=== PATIENT | male | born 1930 | race Caucasian/White ===

== ENCOUNTER 2018-01-13 19:39 | Inpatient (IN) ==
[2018-01-13 21:38] LABS: Basophils % 0.4 % (0.0-0.8); Eosinophils # 0.1 10*3/uL (0.0-0.87); Eosinophils % 1.6 % (0.00-10.9); Hematocrit 30.3 VOL% (42.0-52.0); Hemoglobin 9.5 GM/DL (14.0-18.0); Immature Granulocytes % 0.2 %; Immature Granulocytes Absolute 0.01 #; Lymphocytes # 0.7 10*3/uL (1.4-4.0); Lymphocytes % 11.6 % (21.2-54.2); Mean Corpuscular HGB Conc 31.4 GM/DL (32-36); Mean Corpuscular Hemoglobin 33 PG (27-34); Mean Corpuscular Volume 105.9 FL (87-102); Mean Platelet Volume 10.8 FL (9.6-12.0); Monocytes # 0.5 10*3/uL (0.11-0.8); Monocytes % 8.9 % (1.7-12.7); Neutrophils # 4.3 10*3/uL (1.4-7.4); Neutrophils % 77.3 % (38.7-73.9); Platelet Count 99 T/CUMM (130-400); Red Blood Count 2.86 MC/CUMM (3.8-5.5); White Blood Count 5.6 T/CUMM (4-12)
[2018-01-13 21:56] LABS: Alanine Aminotransferase 15 U/L (16-61); Alkaline Phosphatase 86 U/L (45-117); Aspartate Amino Transferase 11 U/L (0-37); Bilirubin,Total < 0.39 MG/DL (0.2-1.0); Blood Urea Nitrogen 28 MG/DL (7-18); Calcium 8.3 MG/DL (8.5-10.1); Glucose 176 MG/DL (74-106); Potassium 4.2 MMOL/L (3.5-5.1); Sodium 143 MMOL/L (136-145); Total Protein 6.1 G/DL (6.4-8.3)
[2018-01-13 22:07] LABS: Macrocytosis 1+; Poikilocytosis 1+
[2018-01-14 04:43] LABS: Basophils % 0.3 % (0.0-0.8); Eosinophils # 0.1 10*3/uL (0.0-0.87); Hematocrit 30.2 VOL% (42.0-52.0); Hemoglobin 9.6 GM/DL (14.0-18.0); Immature Granulocytes % 0.3 %; Immature Granulocytes Absolute 0.02 #; Lymphocytes # 0.8 10*3/uL (1.4-4.0); Lymphocytes % 13.6 % (21.2-54.2); Mean Corpuscular HGB Conc 31.8 GM/DL (32-36); Mean Corpuscular Hemoglobin 33 PG (27-34); Mean Corpuscular Volume 103.8 FL (87-102); Mean Platelet Volume 11.3 FL (9.6-12.0); Monocytes # 0.6 10*3/uL (0.11-0.8); Neutrophils # 4.4 10*3/uL (1.4-7.4); Neutrophils % 73.8 % (38.7-73.9); Platelet Count 101 T/CUMM (130-400); Red Blood Count 2.91 MC/CUMM (3.8-5.5); Red Cell Distribution Width 12.9 % (9.3-17.3); White Blood Count 5.9 T/CUMM (4-12)
[2018-01-14 05:21] LABS: Calcium 8.4 MG/DL (8.5-10.1); Osmolality,Calculated 291.8 MOS/KG (273-304); Potassium 4.8 MMOL/L (3.5-5.1); Risk Ratio 2.3; Thyroid Stimulating Hormone 4.73 uIU/ml (0.358-3.74)
[2018-01-15 14:14] VITALS: BP 190/87
== END 2018-01-15 16:05 | disposition home health service (06) | DRG 92 ==
LOC: EDBD → EDUNIT# → N.ED 19:39 → N.EDINP 01-14 01:37 → N.TELEN 01-14 03:41
PROVIDERS: ADMIT Hospitalist; ATTEND Hospitalist

== ENCOUNTER 2018-07-07 10:36 | Inpatient (IN) ==
[2018-07-07] MEDS ORDERED: NITROGLYCERIN SL 0.4 MG TABLET SL ONE (11:07)
[2018-07-07] MEDS ORDERED: HEPARIN 5,000 UNIT/1 ML VIAL IV ONE (11:07)
[2018-07-07] MEDS ORDERED: MORPHINE 4 MG/1 ML VIAL IV STA (11:07)
[2018-07-07] MEDS ORDERED: NITROGLYCERIN 2% OINT 1 INCH/GM PACK TOP STA (11:07)
[2018-07-07] MEDS ORDERED: ASPIRIN 325 MG TABLET ONE (11:07)
[2018-07-07] MEDS ORDERED: ONDANSETRON 4 MG/2 ML VIAL IV STA (11:07)
[2018-07-07] MEDS ORDERED: NITROGLYCERIN SL 0.4 MG TABLET SL PRN ×2 (11:07→13:30)
[2018-07-07] MEDS ORDERED: ASPIRIN 325 MG TABLET PO STA (11:07)
[2018-07-07] MEDS ORDERED: TICAGRELOR 90 MG TABLET PO STA (11:10)
[2018-07-07] MEDS ORDERED: TIROFIBAN 0 MCG in PREMIX 1 EACH IV ONE (11:11)
[2018-07-07] MEDS ORDERED: TIROFIBAN 5,000 MCG/100 ML PREMIX IV ONE ×2 (11:14→12:28)
[2018-07-07 11:29] LABS: Calcium 8.6 MG/DL (8.5-10.1)
[2018-07-07 11:30] LABS: Osmolality,Calculated 295.3 MOS/KG (273-304); Potassium 4.4 MMOL/L (3.5-5.1)
[2018-07-07] MEDS ORDERED: LIDOCAINE 1% 20 ML VIAL ONE (11:34)
[2018-07-07 12:00] LABS: Basophils % 0.3 % (0.0-0.8); Eosinophils % 0.2 % (0.00-10.9); Hematocrit 31.3 VOL% (42.0-52.0); Hemoglobin 9.9 GM/DL (14.0-18.0); Immature Granulocytes % 0.4 %; Immature Granulocytes Absolute 0.04 #; Lymphocytes # 0.5 10*3/uL (1.4-4.0); Lymphocytes % 5.5 % (21.2-54.2); Mean Corpuscular HGB Conc 31.6 GM/DL (32-36); Mean Corpuscular Hemoglobin 33 PG (27-34); Mean Corpuscular Volume 103.6 FL (87-102); Monocytes # 0.5 10*3/uL (0.11-0.8); Monocytes % 5.4 % (1.7-12.7); Neutrophils # 7.9 10*3/uL (1.4-7.4); Neutrophils % 88.2 % (38.7-73.9); Red Blood Count 3.02 MC/CUMM (3.8-5.5); Red Cell Distribution Width 12.8 % (9.3-17.3); White Blood Count 8.9 T/CUMM (4-12)
[2018-07-07 12:06] LABS: Platelet Count 5 T/CUMM (130-400)
[2018-07-07 12:17] LABS: INR 1.1; PT Patient Result 11.4 SECS
[2018-07-07] MEDS ORDERED: SODIUM CHLORIDE 0.9% 1,000 ML IV PRN ×2 (12:19→13:41)
[2018-07-07] MEDS ORDERED: fentaNYL 100 MCG/2 ML VIAL ONE (12:27)
[2018-07-07] MEDS: TIROFIBAN 5,000 MCG/100 ML PREMIX IV SCH ×2 (12:37→21:56)
[2018-07-07 12:44] LABS: Partial Thromboplastin Time 73.7 SECS (0-40)
[2018-07-07 13:26] LABS: Hypochromasia 1+; Macrocytosis 1+; Platelet Estimate Decreased
[2018-07-07 13:27] LABS: Giant Platelets Few
[2018-07-07] MEDS ORDERED: MAGNESIUM SULF RIDER 4 GM in PREMIX 1 EACH IV PRN (13:31)
[2018-07-07] MEDS ORDERED: MAGNESIUM SULF RIDER 2 GM in PREMIX 1 EACH IV PRN (13:31)
[2018-07-07] MEDS ORDERED: fentaNYL 100 MCG/2 ML VIAL IV PRN (13:31)
[2018-07-07] MEDS ORDERED: LACTULOSE 20 GM/30 ML UDCUP PO PRN (13:31)
[2018-07-07] MEDS ORDERED: ACETAMINOPHEN 325 MG TABLET PO PRN (13:31)
[2018-07-07] MEDS: SODIUM CHLORIDE 0.9% 1,000 ML IV SCH ×2 (14:02→22:43)
[2018-07-07] MEDS: PANTOPRAZOLE 40 MG TABLET PO SCH (14:36)
[2018-07-07 15:42] LABS: CKMB % 14.8 %
[2018-07-07 17:31] LABS: PT Patient Result 11.1 SECS; Partial Thromboplastin Time 25.8 SECS (0-40)
[2018-07-07 18:30] LABS: Apearance,Urine CLEAR (Clear); Bacteria,Urine Occasional /HPF (Few); Bilirubin,Urine Negative (Negative); Blood, Urine Moderate mg/dL (Negative); Glucose,Urine (UA) 50 mg/dL (Negative); Ketones,Urine Negative (Negative); Nitrite,Urine Negative (Negative); Protein,Urine Negative; RBC,Urine 4 /HPF (0-4); Squamous Epithelial Cell,Urine Occasional /HPF (0-10); Urine Color Straw (Yellow); Urine Specific Gravity 1.028 (1.001-1.035); Urine Urobilinogen < 2.0 EU/DL (0.2-1.0); WBC,Urine 39 /HPF (0-6)
[2018-07-07] MEDS ORDERED: Omeprazole [Prilosec] 20 MG PO SCH (21:00)
[2018-07-07] MEDS ORDERED: predniSONE 20 MG TABLET PO SCH (21:00)
[2018-07-07] MEDS: PREGABALIN 25 MG CAPSULE PO SCH (21:46)
[2018-07-07] MEDS: CARVEDILOL 6.25 MG TABLET PO SCH (21:46)
[2018-07-07] MEDS: ACETYLCYSTEINE 600 MG CAPSULE PO SCH (21:46)
[2018-07-07] MEDS: ROSUVASTATIN 10 MG TABLET PO SCH (21:46)
[2018-07-07 22:26] LABS: CKMB % 16.4 %
[2018-07-07 22:29] LABS: Troponin I 75.6 NG/ML (0.00-0.045)
[2018-07-08 04:37] LABS: Basophils % 0.6 % (0.0-0.8); Eosinophils % 0.6 % (0.00-10.9); Hemoglobin 8.5 GM/DL (14.0-18.0); Immature Granulocytes % 0.5 %; Immature Granulocytes Absolute 0.03 #; Lymphocytes # 0.3 10*3/uL (1.4-4.0); Lymphocytes % 4.5 % (21.2-54.2); Mean Corpuscular HGB Conc 30.4 GM/DL (32-36); Mean Corpuscular Hemoglobin 32 PG (27-34); Mean Corpuscular Volume 105.7 FL (87-102); Mean Platelet Volume 11.8 FL (9.6-12.0); Monocytes # 0.6 10*3/uL (0.11-0.8); Monocytes % 9.4 % (1.7-12.7); Neutrophils # 5.6 10*3/uL (1.4-7.4); Neutrophils % 84.4 % (38.7-73.9); Red Blood Count 2.65 MC/CUMM (3.8-5.5); Red Cell Distribution Width 12.8 % (9.3-17.3); White Blood Count 6.6 T/CUMM (4-12)
[2018-07-08 04:41] LABS: Platelet Count 31 T/CUMM (130-400)
[2018-07-08 05:05] LABS: Alanine Aminotransferase 26 U/L (16-61); Albumin 2.4 G/DL (3.4-5.0); Alkaline Phosphatase 94 U/L (45-117); Aspartate Amino Transferase 113 U/L (0-37); Bilirubin,Total < 0.39 MG/DL (0.2-1.0); Blood Urea Nitrogen 42 MG/DL (7-18); Calcium 8.3 MG/DL (8.5-10.1); Cholesterol 82 MG/DL (50-200); Glucose 92 MG/DL (74-106); HDL Cholesterol 35 MG/DL (40-60); Osmolality,Calculated 296.8 MOS/KG (273-304); Potassium 4.4 MMOL/L (3.5-5.1); Risk Ratio 2.34; Sodium 144 MMOL/L (136-145); Total Protein 5.8 G/DL (6.4-8.3); Triglycerides 82 MG/DL (2-150); VLDL CHOLESTEROL 16.4 MG/DL
[2018-07-08 05:48] LABS: Band Neutrophils 2 % (0-10); Eosinophils 1 % (0-10); Lymphocytes 9 % (20-55); Segmented Neutrophils 83 % (50-85); Total Cells Counted 100
[2018-07-08 05:49] LABS: Anisocytosis 1+; Ovalocytes 1+; Platelet Estimate Decreased
[2018-07-08] MEDS: SODIUM CHLORIDE 0.9% 1,000 ML IV SCH (06:15)
[2018-07-08 06:43] LABS: CKMB % 16.9 %
[2018-07-08 06:45] LABS: Troponin I 62.9 NG/ML (0.00-0.045)
[2018-07-08] MEDS: ASPIRIN CHEW 81 MG TABLET PO SCH (08:11)
[2018-07-08] MEDS: ACETYLCYSTEINE 600 MG CAPSULE PO SCH ×2 (08:11→21:34)
[2018-07-08] MEDS: CARVEDILOL 6.25 MG TABLET PO SCH ×2 (08:11→21:34)
[2018-07-08] MEDS: PANTOPRAZOLE 40 MG TABLET PO SCH (08:11)
[2018-07-08] MEDS: CYANOCOBALAMIN 1000 MCG/1 ML VIAL SUBCUT SCH (11:23)
[2018-07-08 11:28] LABS: Troponin I 55.7 NG/ML (0.00-0.045)
[2018-07-08] MEDS: ROSUVASTATIN 10 MG TABLET PO SCH (21:34)
[2018-07-08] MEDS: PREGABALIN 25 MG CAPSULE PO SCH (21:34)
[2018-07-09 04:34] LABS: Basophils % 0.3 % (0.0-0.8); Eosinophils # 0.1 10*3/uL (0.0-0.87); Eosinophils % 0.9 % (0.00-10.9); Hematocrit 27.6 VOL% (42.0-52.0); Hemoglobin 8.5 GM/DL (14.0-18.0); Immature Granulocytes % 0.3 %; Immature Granulocytes Absolute 0.02 #; Lymphocytes # 0.6 10*3/uL (1.4-4.0); Mean Corpuscular HGB Conc 30.8 GM/DL (32-36); Mean Corpuscular Hemoglobin 33 PG (27-34); Mean Corpuscular Volume 106.2 FL (87-102); Mean Platelet Volume 11.9 FL (9.6-12.0); Monocytes % 13.4 % (1.7-12.7); Neutrophils # 5.9 10*3/uL (1.4-7.4); Neutrophils % 77.1 % (38.7-73.9); Red Cell Distribution Width 12.7 % (9.3-17.3); White Blood Count 7.6 T/CUMM (4-12)
[2018-07-09 04:41] LABS: Platelet Count 42 T/CUMM (130-400)
[2018-07-09 04:58] LABS: Hypochromasia Slight; Ovalocytes 2+; Platelet Estimate Decreased
[2018-07-09 05:03] LABS: Albumin 2.3 G/DL (3.4-5.0); Bilirubin,Total 0.7 MG/DL (0.2-1.0); Calcium 8.3 MG/DL (8.5-10.1); Osmolality,Calculated 291.3 MOS/KG (273-304); Potassium 4.5 MMOL/L (3.5-5.1); Total Protein 5.5 G/DL (6.4-8.3)
[2018-07-09] MEDS: ACETYLCYSTEINE 600 MG CAPSULE PO SCH ×2 (10:06→20:18)
[2018-07-09] MEDS: ASPIRIN CHEW 81 MG TABLET PO SCH (10:06)
[2018-07-09] MEDS: PANTOPRAZOLE 40 MG TABLET PO SCH (10:06)
[2018-07-09] MEDS: CARVEDILOL 6.25 MG TABLET PO SCH ×2 (10:06→20:18)
[2018-07-09] MEDS: CYANOCOBALAMIN 1000 MCG/1 ML VIAL SUBCUT SCH (10:07)
[2018-07-09] MEDS: PREGABALIN 25 MG CAPSULE PO SCH (20:18)
[2018-07-09] MEDS: ROSUVASTATIN 10 MG TABLET PO SCH (20:18)
[2018-07-10 05:02] LABS: Basophils % 0.3 % (0.0-0.8); Eosinophils # 0.1 10*3/uL (0.0-0.87); Eosinophils % 1.6 % (0.00-10.9); Hematocrit 26.3 VOL% (42.0-52.0); Hemoglobin 8.1 GM/DL (14.0-18.0); Immature Granulocytes % 0.1 %; Immature Granulocytes Absolute 0.01 #; Lymphocytes # 0.7 10*3/uL (1.4-4.0); Lymphocytes % 9.5 % (21.2-54.2); Mean Corpuscular HGB Conc 30.8 GM/DL (32-36); Mean Corpuscular Hemoglobin 33 PG (27-34); Mean Corpuscular Volume 106.5 FL (87-102); Mean Platelet Volume 11.5 FL (9.6-12.0); Monocytes # 0.8 10*3/uL (0.11-0.8); Neutrophils # 5.7 10*3/uL (1.4-7.4); Neutrophils % 77.5 % (38.7-73.9); Platelet Count 49 T/CUMM (130-400); Red Blood Count 2.47 MC/CUMM (3.8-5.5); White Blood Count 7.3 T/CUMM (4-12)
[2018-07-10 05:25] LABS: Albumin 2.3 G/DL (3.4-5.0); Bilirubin,Total 0.4 MG/DL (0.2-1.0); Calcium 8.2 MG/DL (8.5-10.1); Osmolality,Calculated 291.4 MOS/KG (273-304); Potassium 4.6 MMOL/L (3.5-5.1); Total Protein 5.7 G/DL (6.4-8.3)
[2018-07-10 05:37] LABS: Hypochromasia 1+; Lymphocytes 7 % (20-55); Ovalocytes Slight; Platelet Estimate Decreased; Segmented Neutrophils 86 % (50-85); Total Cells Counted 100
[2018-07-10] MEDS: CYANOCOBALAMIN 1000 MCG/1 ML VIAL SUBCUT SCH (09:09)
[2018-07-10] MEDS: ACETYLCYSTEINE 600 MG CAPSULE PO SCH (09:09)
[2018-07-10] MEDS: ASPIRIN CHEW 81 MG TABLET PO SCH (09:09)
[2018-07-10] MEDS: PANTOPRAZOLE 40 MG TABLET PO SCH (09:09)
[2018-07-10] MEDS: CARVEDILOL 6.25 MG TABLET PO SCH (09:09)
[2018-07-10 12:01] VITALS: BP 105/53
== END 2018-07-10 16:47 | disposition home health service (06) | DRG 251 ==
LOC: N.ED 10:36 → N.ICU 11:35 → N.TELES 07-08 14:06
PROVIDERS: ADMIT Internal Medicine Cardiovascular Disease; ATTEND Internal Medicine Cardiovascular Disease

== ENCOUNTER 2018-07-13 08:19 | Inpatient (IN) ==
[2018-07-13] MEDS ORDERED: ASPIRIN 325 MG TABLET PO STA (08:39)
[2018-07-13] MEDS ORDERED: NITROGLYCERIN SL 0.4 MG TABLET SL PRN ×2 (08:39→09:12)
[2018-07-13] MEDS ORDERED: NITROGLYCERIN 2% OINT 1 INCH/GM PACK TOP STA (08:39)
[2018-07-13] MEDS ORDERED: ENOXAPARIN 60 MG/0.6 ML SYRINGE SUBCUT STA (08:40)
[2018-07-13 09:04] LABS: Basophils % 0.1 % (0.0-0.8); Eosinophils % 0.4 % (0.00-10.9); Hematocrit 26.2 VOL% (42.0-52.0); Hemoglobin 8.1 GM/DL (14.0-18.0); Immature Granulocytes % 0.4 %; Immature Granulocytes Absolute 0.03 #; Lymphocytes # 0.4 10*3/uL (1.4-4.0); Lymphocytes % 5.3 % (21.2-54.2); Mean Corpuscular HGB Conc 30.9 GM/DL (32-36); Mean Corpuscular Hemoglobin 32 PG (27-34); Mean Corpuscular Volume 104.4 FL (87-102); Mean Platelet Volume 10.4 FL (9.6-12.0); Monocytes # 0.9 10*3/uL (0.11-0.8); Monocytes % 11.7 % (1.7-12.7); Neutrophils # 6.6 10*3/uL (1.4-7.4); Neutrophils % 82.1 % (38.7-73.9); Platelet Count 94 T/CUMM (130-400); Red Blood Count 2.51 MC/CUMM (3.8-5.5); Red Cell Distribution Width 12.6 % (9.3-17.3)
[2018-07-13] MEDS ORDERED: MAGNESIUM SULF RIDER 4 GM in PREMIX 1 EACH IV PRN (09:09)
[2018-07-13] MEDS ORDERED: ONDANSETRON 4 MG/2 ML VIAL IV PRN (09:09)
[2018-07-13] MEDS ORDERED: MAGNESIUM SULF RIDER 2 GM in PREMIX 1 EACH IV PRN (09:09)
[2018-07-13] MEDS ORDERED: ACETAMINOPHEN 325 MG TABLET PO PRN (09:09)
[2018-07-13] MEDS ORDERED: traMADol 50 MG TABLET PO PRN (09:12)
[2018-07-13 09:20] LABS: Osmolality,Calculated 287.7 MOS/KG (273-304); Potassium 4.5 MMOL/L (3.5-5.1)
[2018-07-13] MEDS: ISOSORBIDE MONONITRATE 30 MG TABLET PO SCH (12:38)
[2018-07-13] MEDS ORDERED: KETOROLAC 30 MG/1 ML VIAL IV ONE (13:36)
[2018-07-13] MEDS: PREGABALIN 25 MG CAPSULE PO SCH (21:27)
[2018-07-13] MEDS: ROSUVASTATIN 10 MG TABLET PO SCH (21:28)
[2018-07-13] MEDS: CARVEDILOL 6.25 MG TABLET PO SCH (21:28)
[2018-07-14 03:54] LABS: Basophils % 0.3 % (0.0-0.8); Eosinophils # 0.1 10*3/uL (0.0-0.87); Eosinophils % 1.9 % (0.00-10.9); Hematocrit 24.5 VOL% (42.0-52.0); Hemoglobin 7.6 GM/DL (14.0-18.0); Immature Granulocytes % 0.4 %; Immature Granulocytes Absolute 0.03 #; Lymphocytes # 0.6 10*3/uL (1.4-4.0); Lymphocytes % 8.1 % (21.2-54.2); Mean Corpuscular Hemoglobin 33 PG (27-34); Mean Corpuscular Volume 105.2 FL (87-102); Mean Platelet Volume 11.9 FL (9.6-12.0); Monocytes # 0.9 10*3/uL (0.11-0.8); Monocytes % 11.7 % (1.7-12.7); Neutrophils # 5.7 10*3/uL (1.4-7.4); Neutrophils % 77.6 % (38.7-73.9); Red Blood Count 2.33 MC/CUMM (3.8-5.5); Red Cell Distribution Width 12.7 % (9.3-17.3); White Blood Count 7.3 T/CUMM (4-12)
[2018-07-14 03:58] LABS: Platelet Count 93 T/CUMM (130-400)
[2018-07-14 04:19] LABS: Albumin 2.3 G/DL (3.4-5.0); Bilirubin,Total 0.5 MG/DL (0.2-1.0); Calcium 7.9 MG/DL (8.5-10.1); Osmolality,Calculated 291.5 MOS/KG (273-304); Potassium 4.6 MMOL/L (3.5-5.1); Total Protein 5.8 G/DL (6.4-8.3)
[2018-07-14 04:37] LABS: Ovalocytes 2+; Platelet Estimate Decreased
[2018-07-14 04:38] LABS: Tear Drop Cells Few
[2018-07-14] MEDS: FUROSEMIDE 40 MG TABLET PO SCH (08:38)
[2018-07-14] MEDS: CARVEDILOL 6.25 MG TABLET PO SCH ×2 (08:39→21:25)
[2018-07-14] MEDS: PANTOPRAZOLE 40 MG TABLET PO SCH (08:39)
[2018-07-14] MEDS: TOLTERODINE LA 4 MG CAPSULE PO SCH (08:39)
[2018-07-14] MEDS: ASPIRIN CHEW 81 MG TABLET PO SCH (08:39)
[2018-07-14] MEDS: ISOSORBIDE MONONITRATE 30 MG TABLET PO SCH (08:39)
[2018-07-14] MEDS: PREGABALIN 25 MG CAPSULE PO SCH (21:25)
[2018-07-14] MEDS: ROSUVASTATIN 10 MG TABLET PO SCH (21:25)
[2018-07-15 03:53] LABS: Basophils % 0.4 % (0.0-0.8); Eosinophils # 0.2 10*3/uL (0.0-0.87); Eosinophils % 3.2 % (0.00-10.9); Hematocrit 23.8 VOL% (42.0-52.0); Hemoglobin 7.2 GM/DL (14.0-18.0); Immature Granulocytes % 0.3 %; Immature Granulocytes Absolute 0.02 #; Lymphocytes # 0.7 10*3/uL (1.4-4.0); Lymphocytes % 9.8 % (21.2-54.2); Mean Corpuscular HGB Conc 30.3 GM/DL (32-36); Mean Corpuscular Hemoglobin 32 PG (27-34); Mean Corpuscular Volume 107.2 FL (87-102); Mean Platelet Volume 11.5 FL (9.6-12.0); Monocytes # 0.7 10*3/uL (0.11-0.8); Neutrophils # 5.6 10*3/uL (1.4-7.4); Neutrophils % 77.3 % (38.7-73.9); Platelet Count 109 T/CUMM (130-400); Red Blood Count 2.22 MC/CUMM (3.8-5.5); Red Cell Distribution Width 12.7 % (9.3-17.3); White Blood Count 7.3 T/CUMM (4-12)
[2018-07-15 04:20] LABS: Albumin 2.1 G/DL (3.4-5.0); Bilirubin,Total 0.9 MG/DL (0.2-1.0); Calcium 7.9 MG/DL (8.5-10.1); Osmolality,Calculated 296.4 MOS/KG (273-304); Potassium 4.7 MMOL/L (3.5-5.1); Total Protein 5.6 G/DL (6.4-8.3)
[2018-07-15] MEDS ORDERED: SODIUM CHLORIDE 0.9% 1,000 ML IV PRN (07:43)
[2018-07-15] MEDS ORDERED: diphenhydrAMINE CAP 25 MG CAPSULE PO PRN (07:43)
[2018-07-15] MEDS: FUROSEMIDE 40 MG TABLET PO SCH (08:38)
[2018-07-15] MEDS: ISOSORBIDE MONONITRATE 30 MG TABLET PO SCH (08:38)
[2018-07-15] MEDS: PANTOPRAZOLE 40 MG TABLET PO SCH (08:38)
[2018-07-15] MEDS: TOLTERODINE LA 4 MG CAPSULE PO SCH (08:38)
[2018-07-15] MEDS: ASPIRIN CHEW 81 MG TABLET PO SCH (08:38)
[2018-07-15] MEDS: CARVEDILOL 6.25 MG TABLET PO SCH ×2 (08:39→20:40)
[2018-07-15] MEDS: SODIUM BICARBONATE 650 MG TABLET PO SCH ×3 (09:16→20:47)
[2018-07-15] MEDS: ROSUVASTATIN 10 MG TABLET PO SCH (20:40)
[2018-07-15] MEDS: PREGABALIN 25 MG CAPSULE PO SCH (20:40)
[2018-07-16 03:57] LABS: Basophils % 0.4 % (0.0-0.8); Eosinophils # 0.3 10*3/uL (0.0-0.87); Eosinophils % 3.6 % (0.00-10.9); Hematocrit 30.1 VOL% (42.0-52.0); Hemoglobin 9.4 GM/DL (14.0-18.0); Immature Granulocytes % 0.4 %; Immature Granulocytes Absolute 0.03 #; Lymphocytes # 0.6 10*3/uL (1.4-4.0); Lymphocytes % 8.2 % (21.2-54.2); Mean Corpuscular HGB Conc 31.2 GM/DL (32-36); Mean Corpuscular Hemoglobin 32 PG (27-34); Mean Corpuscular Volume 103.4 FL (87-102); Mean Platelet Volume 11.4 FL (9.6-12.0); Monocytes # 0.6 10*3/uL (0.11-0.8); Monocytes % 8.2 % (1.7-12.7); Neutrophils % 79.2 % (38.7-73.9); Platelet Count 132 T/CUMM (130-400); Red Blood Count 2.91 MC/CUMM (3.8-5.5); Red Cell Distribution Width 14.9 % (9.3-17.3); White Blood Count 7.5 T/CUMM (4-12)
[2018-07-16 04:31] LABS: Albumin 2.3 G/DL (3.4-5.0); Bilirubin,Total 0.9 MG/DL (0.2-1.0); Potassium 5.1 MMOL/L (3.5-5.1); Total Protein 5.8 G/DL (6.4-8.3)
[2018-07-16] MEDS: FUROSEMIDE 40 MG TABLET PO SCH (08:09)
[2018-07-16] MEDS: TOLTERODINE LA 4 MG CAPSULE PO SCH (08:10)
[2018-07-16] MEDS: CARVEDILOL 6.25 MG TABLET PO SCH ×2 (08:10→21:40)
[2018-07-16] MEDS: ISOSORBIDE MONONITRATE 30 MG TABLET PO SCH (08:10)
[2018-07-16] MEDS: PANTOPRAZOLE 40 MG TABLET PO SCH (08:10)
[2018-07-16] MEDS: ASPIRIN CHEW 81 MG TABLET PO SCH (08:10)
[2018-07-16] MEDS: SODIUM BICARBONATE 650 MG TABLET PO SCH ×3 (08:12→21:40)
[2018-07-16] MEDS ORDERED: TUBERCULIN SKIN TEST 0.1 ML SYRINGE INTRADERM ONE (12:08)
[2018-07-16] MEDS: SODIUM CHLORIDE 0.9% 1,000 ML IV SCH (14:25)
[2018-07-16] MEDS: PREGABALIN 25 MG CAPSULE PO SCH (21:39)
[2018-07-16] MEDS: ROSUVASTATIN 10 MG TABLET PO SCH (21:40)
[2018-07-17] MEDS: SODIUM CHLORIDE 0.9% 1,000 ML IV SCH (03:42)
[2018-07-17 04:27] LABS: Basophils % 0.3 % (0.0-0.8); Eosinophils # 0.2 10*3/uL (0.0-0.87); Eosinophils % 2.8 % (0.00-10.9); Hematocrit 29.3 VOL% (42.0-52.0); Hemoglobin 9.2 GM/DL (14.0-18.0); Immature Granulocytes % 0.5 %; Immature Granulocytes Absolute 0.04 #; Lymphocytes # 0.6 10*3/uL (1.4-4.0); Mean Corpuscular HGB Conc 31.4 GM/DL (32-36); Mean Corpuscular Hemoglobin 32 PG (27-34); Mean Corpuscular Volume 102.1 FL (87-102); Mean Platelet Volume 11.5 FL (9.6-12.0); Monocytes # 0.7 10*3/uL (0.11-0.8); Monocytes % 8.8 % (1.7-12.7); Neutrophils # 6.3 10*3/uL (1.4-7.4); Neutrophils % 79.6 % (38.7-73.9); Platelet Count 148 T/CUMM (130-400); Red Blood Count 2.87 MC/CUMM (3.8-5.5); Red Cell Distribution Width 14.3 % (9.3-17.3)
[2018-07-17 04:47] LABS: Calcium 7.7 MG/DL (8.5-10.1); Osmolality,Calculated 302.8 MOS/KG (273-304); Potassium 4.6 MMOL/L (3.5-5.1)
[2018-07-17 04:54] LABS: % Iron Saturation 16.1 % (18-50); Ferritin 160.1 ng/ml (26-388)
[2018-07-17 05:02] LABS: Folate 8.5 NG/ML (5.4-24.0); Vitamin B12 > 2000 PG/ML (211-911)
[2018-07-17] MEDS: ASPIRIN CHEW 81 MG TABLET PO SCH (08:17)
[2018-07-17] MEDS: CARVEDILOL 6.25 MG TABLET PO SCH (08:17)
[2018-07-17] MEDS: TOLTERODINE LA 4 MG CAPSULE PO SCH (08:17)
[2018-07-17] MEDS: PANTOPRAZOLE 40 MG TABLET PO SCH (08:17)
[2018-07-17] MEDS: ISOSORBIDE MONONITRATE 30 MG TABLET PO SCH (08:17)
[2018-07-17] MEDS: SODIUM BICARBONATE 650 MG TABLET PO SCH ×2 (08:17→14:52)
[2018-07-17] MEDS ORDERED: FERROUS SULFATE 325 MG TABLET PO SCH (12:30)
[2018-07-17 15:52] VITALS: BP 120/74
== END 2018-07-17 15:58 | DRG 281 ==
LOC: EDBD → EDUNIT# → N.EDINP 08:19 → N.ED 08:19 → N.TELEN 09:54
PROVIDERS: ADMIT Internal Medicine Cardiovascular Disease; ATTEND Internal Medicine Cardiovascular Disease